=== PATIENT | male | born 1975 | race Caucasian/White ===

== ENCOUNTER 2017-01-13 23:10 | Emergency (ER) | payer BC, OTHER ==
[~2017-01-13] VITALS: Ht 162.6 cm; Wt 70.7 kg
[~2017-01-13 23:10] MED LIST: ASEN10TA SL; DIAZ5 PO; GABA250S PO; HYDR50TA94 PO; LAMO100 PO; LATU40TA PO; TRAZ100 PO
[2017-01-13 23:26] VITALS: BP 126/77; PULSE 86; RESP 16; TEMP 98.8; O2SAT 98
--- NOTE | 2017-01-14 00:30 | RADRPT ---
EXAM DATE/TIME: 01/14/2017 00:09 [place] COMPARISON: No previous studies available for comparison. INDICATIONS : Right hand, second digit swelling and redness post stung by fish. MEDICAL HISTORY : None. SURGICAL HISTORY : None. ENCOUNTER: Initial ACUITY: 2 weeks PAIN SCORE: 7/10 LOCATION: Right upper extremity FINDINGS: There is a tiny metallic-appearing radiopaque density in the soft tissues of the distal right second finger. No acute bony or ligamentous. No other radiopaque foreign body identified. CONCLUSION: 1. Tiny metallic foreign body in soft tissues of distal second finger. No other radiopaque foreign melody dy identified. Jaime Mckeon MD on January 14, 2017 at 0:26 Board Certified Radiologist. This report was verified electronically.
[2017-01-14] MEDS ORDERED: TEGR200T PO (00:55)
[2017-01-14] MEDS ORDERED: ZIPR20 PO (00:55)
--- NOTE | 2017-01-14 01:12 | PD ---
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 His fingers will up but it is gone down now. He has a persistent mallet finger deformity, he denies hitting the finger. He has some slight redness at the dorsal DIP joint. He put himself on an antibiotic that he does not know the name of and it was old, he request another antibiotic prescription. PFSH Past Medical History Anxiety: Yes High Cholesterol: Yes Diminished Hearing: No Immunizations Current: No Tetanus Vaccination: Unknown Influenza Vaccination: No Past Surgical History Other Surgery: Yes (hernia ) Social History Alcohol Use: Yes (occasional ) Tobacco Use: Yes (2-3 packs ) Substance Use: Yes (marijuana ) Allergies-Medications (Allergen,Severity, Reaction): Coded Allergies: No Known Allergies (Unverified , 01/14/17) Reported Meds & Prescriptions Reported Meds & Active Scripts Active Bactrim DS (Sulfamethoxazole-Trimethoprim) 800-160 Mg Tab 1 Tab PO BID Reported Geodon (Ziprasidone) 20 Mg Cap 20 Mg PO BID Tegretol (Carbamazepine) 200 Mg Tab 200 Mg PO BID Review of Systems Except as stated in HPI: all other systems reviewed are Neg Physical Exam Narrative GENERAL: Well-nourished, well-developed patient in minimal apparent distress with his right index finger deformity. SKIN: Focused skin assessment warm/dry. HEAD: Normocephalic. EYES: No scleral icterus. No injection or drainage. NECK: Supple, trachea midline. No JVD or lymphadenopathy. CARDIOVASCULAR: Regular rate and rhythm without murmurs, gallops, or rubs. RESPIRATORY: Breath sounds equal bilaterally. No accessory muscle use. GASTROINTESTINAL: Abdomen soft, non-tender, nondistended. There is a mallet finger deformity on the right index finger. It is about 45 in flexion and he cannot extend. There is slight erythema on the dorsum of the DIP joint there. MUSCULOSKELETAL: No cyanosis, or edema. BACK: Nontender without obvious deformity. No CVA tenderness. Data Data Last Documented VS Vital Signs Date Time Temp Pulse Resp B/P Pulse Ox O2 Delivery O2 Flow Rate FiO2 01/13/17 23:26 98.8 86 16 126/77 98 Orders Finger ([id number]) (01/14/17 ) Sulfamet-Trimeth Ds 800-160 Mg (Bactrim (01/14/17 01:15) Splint Or Brace Apply/Monitor (01/14/17 01:12) MDM Medical Decision Making Medical Screen Exam Complete: Yes Emergency Medical Condition: Yes Medical Record Reviewed: Yes Interpretation(s) X-rays show a tiny metallic foreign body which is unrelated to the patient's symptoms. Differential Diagnosis Mild finger deformity, joint space infectionunlikely, cellulitis, foreign body finger Narrative Course The patient has a mild finger deformity. It probably is 2 weeks old and may not respond to treatment this old however we will splinted in extension and have him follow-up with an surgeon. We will also put him on Septra DS to cover any infection that he may have. 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 Diagnosis Primary Impression: Mallet deformity of right index finger Additional Instructions: Follow-up with a hand surgeon. This finger will be permanently flexed as he seen now unless he can fix this. Keep it in extension until he sees you. The antibiotic is one tablet twice daily for 10 days. Med/Other Pt SpecificInfo: Prescription(s) given Scripts Sulfamethoxazole-Trimethoprim (Bactrim DS)800-160 Mg Tab1 Tab PO BID #20 TAB Ref 0 Prov:Harman Callejas MD 01/14/17 Disposition: 01 DISCHARGE HOME Condition: Stable Harman Callejas MD Jan 14, 2017 01:11
[2017-01-14] MEDS ORDERED: BACT800T5 PO (01:14)
[2017-01-14] MEDS ORDERED: SULFAMETHOXAZOLE-TRIMETHOPRIM DS 800-160 MG TAB PO ONE (01:15)
[2017-01-14 01:46] VITALS: BP 122/76
== END 2017-01-14 01:48 | disposition home or self-care (01) ==
LOC: PHED 23:10
DX: M20.011 Mallet finger of right finger(s) (principal); T63.591A Toxic effect of contact with other venomous fish, accidental (unintentional), initial encounter; E78.00 Pure hypercholesterolemia, unspecified; F17.200 Nicotine dependence, unspecified, uncomplicated; X58.XXXA Exposure to other specified factors, initial encounter; Y99.0 Civilian activity done for income or pay
CPT/HCPCS: 29130; 73140

== ENCOUNTER 2017-06-25 16:54 | Emergency (ER) | payer MEDICAID, OTHER ==
[~2017-06-25] VITALS: Ht 162.6 cm; Wt 76.0 kg
[~2017-06-25 16:54] MED LIST changes: -ASEN10TA SL; +BACT800T5 PO; -DIAZ5 PO; -GABA250S PO; -HYDR50TA94 PO; -LAMO100 PO; -LATU40TA PO; +TEGR200T PO; -TRAZ100 PO; +ZIPR20 PO
[2017-06-25 17:01] VITALS: BP 114/78; PULSE 106; RESP 20; TEMP 98.3; O2SAT 96
[2017-06-25] MEDS ORDERED: ALBU0.63 NEB (18:32)
[2017-06-25] MEDS ORDERED: OXYC1CAP PO (18:32)
--- NOTE | 2017-06-25 18:34 | PD ---
HPI Chief Complaint: Complaint Time Seen by Provider: 18:26 Travel History International Travel<30 days: No Contact w/Intl Traveler<30days: No Traveled to known affect area: No History of Present Illness HPI 42-year-old male came to the emergency room with history of a Saucedo catheter that's been there for 2 months and he wanted to be taken out. Patient says that he got this put during [facility] in [place] where he had a traumatic injury to his pelvis. This led to the damage of his urethra. They had fixed the bony pelvis and then discharge him home with a Saucedo catheter. Asked to follow up with local urology to have the catheter taken out and his urethra reassessed. However patient says that he has been to 4 different emergency rooms all within the [facility] system and has not had any help so far. He has tried to follow up with urologist but nobody would accept his insurance. Currently patient seems very frustrated. He says that he has had occasional leakage around the Saucedo catheter. Patient is also complaining of some pain occasionally. Vital signs are stable. [facility] Past Medical History Narrative Medical List of his past medical, surgical, social and family history is reviewed from the nursing note. Bipolar Disorder: Yes Anxiety: Yes High Cholesterol: Yes Diminished Hearing: No Immunizations Current: No Past Surgical History Other Surgery: Yes (hernia ) Social History Alcohol Use: Yes (occasional ) Tobacco Use: Yes (1PPD) Substance Use: Yes (marijuana ) Allergies-Medications (Allergen,Severity, Reaction): Coded Allergies: No Known Allergies (Unverified Adverse Reaction, Unknown, 06/25/17) Comments No known drug allergies. Reported Meds & Prescriptions Reported Meds & Active Scripts Active Ibuprofen 400 Mg Tab 400 Mg PO Q6H PRN Bactrim DS (Sulfamethoxazole-Trimethoprim) 800-160 Mg Tab 1 Tab PO BID Reported Albuterol Neb (Albuterol Sulfate) 0.63 Mg/3 Ml Neb 0.63 Mg NEB Q4HR NEB PRN Oxycodone (Oxycodone HCl) 5 Mg Cap 5 Mg PO Q4H PRN Geodon (Ziprasidone) 20 Mg Cap 40 Mg PO HS Tegretol (Carbamazepine) 200 Mg Tab 200 Mg PO BID Narrative Medication List of his home medications reviewed from the nursing note. Review of Systems Except as stated in HPI: all other systems reviewed are Neg Physical Exam Narrative GENERAL: Awake, alert, anxious SKIN: Focused skin assessment warm/dry. HEAD: Atraumatic. Normocephalic. EYES: Pupils equal and round. No scleral icterus. No injection or drainage. ENT: No nasal bleeding or discharge. Mucous membranes pink and moist. Poor dental hygiene NECK: Trachea midline. No JVD. CARDIOVASCULAR: Regular rate and rhythm. No murmur appreciated. RESPIRATORY: No accessory muscle use. Clear to auscultation. Breath sounds equal bilaterally. GASTROINTESTINAL: Abdomen soft, non-tender, nondistended. Hepatic and splenic margins not palpable. MUSCULOSKELETAL: No obvious deformities. No clubbing. No cyanosis. No edema. : Circumcised penis, fully catheter, surrounding area looks dry, leg bag seems to be filled with urine NEUROLOGICAL: Awake and alert. No obvious cranial nerve deficits. Motor grossly within normal limits. Normal speech. PSYCHIATRIC: Appropriate mood and affect; insight and judgment normal. Data Data Last Documented VS Vital Signs Date Time Temp Pulse Resp B/P (MAP) Pulse Ox O2 Delivery O2 Flow Rate FiO2 06/25/17 19:37 88 18 116/77 (90) 96 Nasal Cannula 06/25/17 17:01 98.3 Orders Orders Mandatory Outpatient Referral (06/25/17 18:50) Ed Discharge Order (06/25/17 18:52) Ketorolac Inj (Toradol Inj) (06/25/17 19:00) MDM Medical Decision Making Medical Screen Exam Complete: Yes Emergency Medical Condition: Yes Medical Record Reviewed: Yes Differential Diagnosis Prolonged Saucedo catheterization Narrative Course 7:10 PM I discussed the case with Dr. Becerril who is on-call for urology. As per him patient does not be to be hospitalized. Patient come to the office where Dr. Becerril will see him. He needs to bring the medical records from [place] regarding the procedure that was done. He wanted a mandatory referral being placed which has been ordered. I tried to explain this to the patient and his family and I immediately got a lot of anger and resistance saying that nothing is being done for him. I had repeatedly tried to explain to them that there is a plan in place but they wanted something done tonight. At this point I came out of the room since I was getting nowhere with them and asked the charge nurse to straight and the plan of care. She has successfully been able to convey this. Seems like all their questions as been answered. I will discharge him home. Procedures EKG Prior to Arrival: No Physician Communication Physician Communication Dr. Becerril Diagnosis Primary Impression: Problem with Saucedo catheter Qualified Codes: T83.9XXA - Unspecified complication of genitourinary prosthetic device, implant and graft, initial encounter Additional Impression: Presence of indwelling Sauecdo catheter Additional Instructions: Please follow-up with the urologist whose name and number been given to you when this discharge paper. Their office should give you a call placed on a mandatory referral that has been ordered from this emergency department. They would like to know the appointment date and time. Show up on the time and date of the appointment. Med/Other Pt SpecificInfo: Prescription(s) given Scripts Ibuprofen (Ibuprofen) 400 Mg Tab 400 MG PO Q6H Y for PAIN SCALE 1 TO 4, #20 TAB 0 Refills Prov: Alondra Temple MD 06/25/17 Disposition: 01 DISCHARGE HOME Condition: Stable Alondra Temple MD Jun 25, 2017 18:34
[2017-06-25] MEDS ORDERED: IBUP1TAB5 PO (18:59)
[2017-06-25 19:00] VITALS: BP 114/69; PULSE 89; RESP 18; O2SAT 96
[2017-06-25] MEDS ORDERED: KETOROLAC TROMETHAMINE 60 MG/2 ML (IM) VIAL IM ONE (19:00)
[2017-06-25 19:37] VITALS: BP 116/77
== END 2017-06-25 20:06 | disposition home or self-care (01) ==
LOC: PHED 16:54
DX: T83.9XXA Unspecified complication of genitourinary prosthetic device, implant and graft, initial encounter (principal); F31.9 Bipolar disorder, unspecified; F41.9 Anxiety disorder, unspecified; E78.00 Pure hypercholesterolemia, unspecified; F17.200 Nicotine dependence, unspecified, uncomplicated; Z79.899 Other long term (current) drug therapy
CPT/HCPCS: 96372; 99284; J1885

== ENCOUNTER 2017-07-07 10:42 | Emergency (ER) | payer MEDICAID ==
[~2017-07-07] VITALS: Ht 162.6 cm; Wt 75.0 kg
[~2017-07-07 10:42] MED LIST changes: +ALBU0.63 NEB; +IBUP1TAB5 PO; +OXYC1CAP PO
[2017-07-07 10:44] VITALS: BP 138/100; PULSE 120; RESP 24; TEMP 97.5; O2SAT 98
[2017-07-07 11:05] VITALS: BP 124/84; PULSE 94; RESP 22; TEMP 98.2; O2SAT 99
[2017-07-07] MEDS ORDERED: traMADol HCL 50 MG TAB PO ONE (11:30)
--- NOTE | 2017-07-07 11:46 | PD ---
HPI Chief Complaint: Pain: Acute or Chronic Time Seen by Provider: 11:24 Travel History International Travel<30 days: No Contact w/Intl Traveler<30days: No Traveled to known affect area: No History of Present Illness HPI 42-year-old male patient with history of pelvic fractures and urethral injury after an accident in [place] several months ago, is supposed to see Dr. Becerril here but is not scheduled until August, presents to the ER today because of penile pain and greenish drainage from the penis. He has an indwelling Saucedo catheter that has been there for several months. He states he has had these pains since they put in the Saucedo catheter. He denies any other issues. Modifying Factors: None Associated Signs & Symptoms: Penile pain, Saucedo catheter Risk Factors: History of pelvic injuries, fractures, urethral injury, indwelling Saucedo catheter PFSH Past Medical History Bipolar Disorder: Yes Anxiety: Yes High Cholesterol: Yes Diabetes: No Diminished Hearing: No Immunizations Current: No Tetanus Vaccination: > 5 Years Influenza Vaccination: No Past Surgical History Other Surgery: Yes (hernia ) Social History Alcohol Use: Yes (occasional ) Tobacco Use: Yes (1PPD) Substance Use: Yes (marijuana ) Allergies-Medications (Allergen,Severity, Reaction): Coded Allergies: No Known Allergies (Unverified Adverse Reaction, Unknown, 06/25/17) Reported Meds & Prescriptions Reported Meds & Active Scripts Active Ibuprofen 400 Mg Tab 400 Mg PO Q6H PRN Reported Albuterol Neb (Albuterol Sulfate) 0.63 Mg/3 Ml Neb 0.63 Mg NEB Q4HR NEB PRN Geodon (Ziprasidone) 20 Mg Cap 40 Mg PO HS Tegretol (Carbamazepine) 200 Mg Tab 200 Mg PO BID Review of Systems Except as stated in HPI: all other systems reviewed are Neg Physical Exam Narrative GENERAL: Well-developed middle-aged male patient currently in mild distress. Awake and oriented 3. SKIN: Focused skin assessment warm/dry. HEAD: Atraumatic. Normocephalic. EYES: Pupils equal and round. No scleral icterus. No injection or drainage. ENT: No nasal bleeding or discharge. Mucous membranes pink and moist. NECK: Trachea midline. No JVD. CARDIOVASCULAR: Regular rate and rhythm. No murmur appreciated. RESPIRATORY: No accessory muscle use. Clear to auscultation. Breath sounds equal bilaterally. GASTROINTESTINAL: Abdomen soft, mild pelvic tenderness on palpation without guarding or rebound , nondistended. Hepatic and splenic margins not palpable. GENITOURINARY: Circumcised. Testes descended bilaterally without evidence of rotation. No lesions or erythema. I do not see urethral discharge. Saucedo catheter appears to be in place. Draining cloudy yellow urine. MUSCULOSKELETAL: No obvious deformities. No clubbing. No cyanosis. No edema. NEUROLOGICAL: Awake and alert. No obvious cranial nerve deficits. Motor grossly within normal limits. Normal speech. PSYCHIATRIC: Appropriate mood and affect; insight and judgment normal. Data Data Last Documented VS Vital Signs Date Time Temp Pulse Resp B/P (MAP) Pulse Ox O2 Delivery O2 Flow Rate FiO2 07/07/17 11:12 77 18 07/07/17 11:05 98.2 124/84 (97) 99 Orders Orders Urinalysis - C+S If Indicated (07/07/17 11:16) Tramadol (Ultram) (07/07/17 11:30) Urine Culture (07/07/17 11:40) Sulfamet-Trimeth Ds 800-160 Mg (Bactrim (07/07/17 13:00) Ed Discharge Order (07/07/17 13:46) Labs Laboratory Tests Test 07/07/17 11:40 Urine Color YELLOW Urine Turbidity HAZY Urine pH 6.5 Urine Specific [place] 1.021 Urine Protein 30 mg/dL Urine Glucose (UA) NEG mg/dL Urine Ketones NEG mg/dL Urine Occult Blood MOD Urine Nitrite POS Urine Bilirubin NEG Urine Urobilinogen LESS THAN 2.0 MG/DL Urine Leukocyte Esterase LARGE Urine RBC 64 /hpf Urine WBC /hpf Urine Squamous Epithelial Cells <1 /hpf Urine Bacteria OCC /hpf Urine Mucus FEW /lpf Microscopic Urinalysis Comment CULTURE INDICATED MDM Medical Decision Making Medical Screen Exam Complete: Yes Emergency Medical Condition: Yes Medical Record Reviewed: Yes Interpretation(s) Laboratory Tests Test 07/07/17 11:40 Urine Turbidity HAZY (CLEAR) Urine Protein 30 mg/dL (NEG-TRACE) Urine Occult Blood MOD (NEG) Urine Nitrite POS (NEG) Urine Leukocyte Esterase LARGE (NEG) Urine RBC 64 /hpf (0-3) Urine Bacteria OCC /hpf (NONE) Urine Mucus FEW /lpf (OCC) Differential Diagnosis Penile pain, Saucedo catheter, cloudy urine: UTI versus postop pain versus catheter malfunction Narrative Course UA shows significant UTI. P.o. Bactrim was given in the ER. Case was discussed with Dr. Becerril who states that he would not remove the catheter, will need cystoscopy on removal for evaluation of the area of injury. He would recommend that the patient call on Monday to be seen in his clinic earlier. At this point, my plan would be to release the patient with symptomatic relief or pain and Bactrim for UTI. Return for any worsening in pain or new symptoms as needed. The plan has been discussed with him and he states understanding. Diagnosis Primary Impression: UTI (urinary tract infection) Referrals: Morales Becerril DO Med/Other Pt SpecificInfo: Prescription(s) given Scripts Tramadol (Tramadol) 50 Mg Tab 50 MG PO Q6H Y for PAIN, #15 TAB 0 Refills Prov: Peyton Orozco MD 07/07/17 Sulfamethoxazole-Trimethoprim (Bactrim DS) 800-160 Mg Tab 1 TAB PO BID for Infection, #20 TAB 0 Refills Prov: Peyton Orozco MD 07/07/17 Disposition: 01 DISCHARGE HOME Condition: Stable Peyton Orozco MD Jul 07, 2017 11:46
[2017-07-07 11:58] LABS: BACTERIA, URINE OCC /hpf; BILIRUBIN, URINE NEG (NEG); BLOOD, URINE MOD (NEG); GLUCOSE,URINE NEG (NEG); KETONE, URINE NEG (NEG); MUCUS URINE FEW /lpf (OCC); NITRITE,URINE POS (NEG); PH, URINE 6.5 (5.0-8.5); SQUAMOUS EPITHELIAL CELL URINE <1 /hpf (0-5); URINE COLOR YELLOW (YELLW/STRAW); URINE LEUKOCYTE ESTERASE LARGE (NEG)
[2017-07-07] MEDS ORDERED: SULFAMETHOXAZOLE-TRIMETHOPRIM DS 800-160 MG TAB PO ONE (13:00)
[2017-07-07] MEDS ORDERED: TRAM50TA PO (13:50)
[2017-07-07] MEDS ORDERED: BACT800T5 PO (13:50)
[2017-07-14] MEDS ORDERED: VENTAER INH (07:58)
== END 2017-07-07 14:58 | disposition home or self-care (01) ==
LOC: NEPE 10:42
DX: N39.0 Urinary tract infection, site not specified (principal); F31.9 Bipolar disorder, unspecified; F41.9 Anxiety disorder, unspecified; E78.00 Pure hypercholesterolemia, unspecified; F17.200 Nicotine dependence, unspecified, uncomplicated; Z79.51 Long term (current) use of inhaled steroids; Z79.899 Other long term (current) drug therapy
CPT/HCPCS: 81001; 87086; 99283

== ENCOUNTER → 2017-07-14 | Day surgery (SDC) | payer MEDICAID ==
[~2017-07-14] VITALS: Ht 163.8 cm; Wt 71.7 kg
[~2017-07-14] MED LIST changes: +*MEPERIDINE 25 MG INJ VIAL PERIprocedural Use ONLY ONE; +*RESP: ALBUTEROL 2.5 MG/3 ML NEB (PRN) PERIprocedural Use ONLY NEB ONE; +AMPICILLIN 1 GM/NS 100 ML IV SCH; +BELLADONNA ALKALOIDS/OPIUM 60 MG SUPP RECTAL ONE; +BELLADONNA ALKALOIDS/OPIUM 60 MG SUPP RECTAL PRN; +CHLORHEXIDINE GLUCONATE 2 % 1 PACK (2 CLOTHS) TOPICAL PRN; +DEXAMETHASONE SOD PHOS 4 MG/ML VIAL IV ONE; +DO NOT ADM ANY ANTICOAGULANT DRUGS PRN; +GENTAMICIN INJ 240 MG in SODIUM CHLORIDE 0.9% INJ 100 ML IV SCH; +LACTATED RINGER'S 1000 ML INJ 1,000 ML IV ONE; +LACTATED RINGER'S 1000 ML IV PRN; +LIDOCAINE HCL 1% PF 5 ML SYRINGE OTHER ONE; +METOPROLOL TARTRATE 25 MG TAB PO PRN; +MORPHINE SULFATE 2 MG/ML INJ IV PRN; +ONDANSETRON HCL 4 MG/2 ML VIAL IV ONE; +ONDANSETRON HCL 4 MG/2 ML VIAL IV PUSH PRN; -OXYC1CAP PO; +POVIDONE IODINE 5% (ANTISEPSIS KIT) 4 APPLICATIONS EACH NARE PRN; +PROPOFOL 200 MG/20 ML AMP IV ONE; +SODIUM CHLORID 0.9% 500 ML IV PRN; +TRAM50TA PO; +VENTAER INH; +oxyCODONE/ACETAMINOPHEN 7.5 MG/325 MG TAB PO PRN
[2017-07-14 08:13] LABS: AUTOMATED NEUTROPHIL # 7.2 TH/MM3 (1.8-7.7); BASOPHIL # 0.1 TH/MM3 (0-0.2); BASOPHIL % 0.8 % (0.0-2.0); EOSINOPHIL # 0.2 TH/MM3 (0-0.4); EOSINOPHIL % 1.5 % (0.0-4.0); HEMATOCRIT 45.4 % (39.0-51.0); HEMOGLOBIN 15.8 GM/DL (13.0-17.0); LYMPH % 18.3 % (9.0-44.0); LYMPHOCYTE # 1.9 TH/MM3 (1.0-4.8); MEAN CELL VOLUME 84.7 FL (80.0-100.0); MEAN CORPUSCULAR HEMOGLOBIN 29.4 PG (27.0-34.0); MEAN CORPUSCULAR HGB CONC 34.7 % (32.0-36.0); MEAN PLATELET VOLUME 8.6 FL (7.0-11.0); MONO % 9.3 % (0.0-8.0); NEUT % 70.1 % (16.0-70.0); PLATELET COUNT 264 TH/MM3 (150-450); RED BLOOD COUNT 5.37 MIL/MM3 (4.50-5.90); RED CELL DISTRIBUTION WIDTH 14.8 % (11.6-17.2); WHITE BLOOD COUNT 10.3 TH/MM3 (4.0-11.0)
--- NOTE | 2017-07-14 10:49 | PD.OP ---
Operative Report Date of Surgery: Jul 14, 2017 Preoperative Diagnosis: History of urethral injury after pelvic fracture Postoperative Diagnosis: Same Procedure: Cystoscopy with laser of encrusted perez balloon with removal of perez catheter Insertion of SP tube Difficult perez placement Anesthesia: Gen. LMA Surgeon: Morales Becerril Retail Special Event Associate(s): none Resident Surgeon: none Operation and Findings: 42 year-old male with history of pelvic fracture with urethral disruption injury in [facility] on March 03, 2017. Patient initially had a suprapubic tube catheter inserted and in 3 days later with a 2 surgeon approach a wire was passed antegrade through the bladder with the scope in the urethra and then a Perez was placed over a wire. Patient has had a Perez in since the accident and was last changed 2 months ago. The plan was to bring the patient to the operating room to undergo cystoscopy with a possible retrograde urethrogram with possible super pubic tube catheter insertion. Risk and benefits were discussed preoperatively he was went to proceed. The patient was brought to the operating room and identified by myself as Kenneth Weinstein. He was placed in the dorsal lithotomy position, prepped and draped in usual sterile fashion, received preprocedure antibiotics, and general LMA anesthesia was administered. Initially an attempt was made to remove the Perez by deflating the balloon. This was unsuccessful. A flexible ureteroscope was then passed along the Perez catheter into the bladder. The balloon had encrustation around it. Using the 200 laser fiber, the balloon was then fractured and deflated. Attempt was made to remove the Perez at this was also unsuccessful. A Perez was then cut at the urethral meatus. Using a rigid cystoscope, the balloon was noted to be deflated but was still slightly encrusted on the inside of the balloon. Therefore not fully deflate. Using the graspers forceps, I was able to finally remove the Perez. He was then made to place a suprapubic tube. Using lousy retractor, an incision was made over the retractor at the suprapubic site. A 22 Mongolian Perez catheter was then utilized as a suprapubic tube. 10 cc were placed in the balloon. A 16 Mongolian Perez was then passed into the urethra. This will stay in until next week and will be removed for voiding trial. The patient was awoken, extubated, and transferred to remove in stable condition. Morales Becerril DO Jul 14, 2017 10:49
[2017-07-14 12:19] VITALS: BP 111/69; PULSE 93; RESP 18; TEMP 97.9; O2SAT 97
== END | disposition home or self-care (01) ==
LOC: HSDC 07:06
PROVIDERS: ATTEND Urology
DX: S37.30XD Unspecified injury of urethra, subsequent encounter (principal); J44.9 Chronic obstructive pulmonary disease, unspecified; F17.200 Nicotine dependence, unspecified, uncomplicated
CPT/HCPCS: 00910; 51610; 85025; 94664; C1769; J1100; J1580; J2175; J2405; J3010; J7120; J7613